=== PATIENT | female | born 1955 | race Caucasian/White ===

== ENCOUNTER 2018-05-07 12:45 | Outpatient (REF) | payer OTHER, SELFPAY ==
[2018-05-07 21:27] LABS: ALT 24 U/L (12-78); AST 16 U/L (15-37); Albumin 3.9 g/dL (3.4-5.0); Alkaline Phosphatase 95 U/L (46-116); Anion Gap 7.8 mmol/L (3-11); BUN 15 mg/dL (7-18); Bilirubin, Total 0.4 mg/dL (0.2-1.0); CO2 29.2 mmol/L (21.0-32.0); CREATININE 0.89 mg/dL (0.55-1.02); Calcium 9.8 mg/dL (8.5-10.1); Chloride 103 mmol/L (98-107); Cholesterol 323 mg/dL (50-200); Glucose 93 mg/dL (70-100); HDL Cholesterol 54 mg/dL (40-60); LDL CHOLESTEROL 238 mg/dL (<100); Potassium 4.5 mmol/L (3.5-5.1); Sodium 140 mmol/L (136-145); TSH 2.23 uIU/mL (0.358-3.74); Total Protein 7.8 g/dL (6.4-8.2); Triglyceride 148 mg/dL (30-150)
== END 2018-05-07 13:05 ==
LOC: NCHCN 12:45
PROVIDERS: PCP Physician Assistant Medical; Visit Provider Nurse Practitioner Family
DX: R76.0 Raised antibody titer (principal); E78.70 Disorder of bile acid and cholesterol metabolism, unspecified; M85.80 Other specified disorders of bone density and structure, unspecified site
CPT/HCPCS: 80053; 80061; 83721; 84443

== ENCOUNTER 2018-05-28 00:10 | Outpatient (CLI) | payer OTHER, SELFPAY ==
--- NOTE | 2018-05-28 15:03 | DI.MAMMO_ITS ---
SYMPTOM/DIAGNOSIS: SCREENING, Z12.39 MAMMOGRAMS: Mammograms were interpreted according to the usual protocol including computer analysis with CAD system, tomosynthesis and C view imaging. There are no prior comparison exams. The breasts are composed of scattered fibroglandular densities, breast density, Category B. No suspicious masses or suspicious microcalcifications are seen. IMPRESSION: Category 1, negative mammogram. Yearly screening mammography is recommended. [facility] [place] ASSESSMENT OF FINDINGS: Negative. Category 1. Patient will receive a letter notifying them of these results. BI-RADS category B. There are scattered areas of fibroglandular density.
== END 2018-05-28 00:30 ==
PROVIDERS: PCP Nurse Practitioner Family; Visit Provider Nurse Practitioner Family
DX: Z12.31 Encounter for screening mammogram for malignant neoplasm of breast (principal)
CPT/HCPCS: 77063; 77067

== ENCOUNTER 2024-06-07 10:11 | Outpatient (CLI) | payer MEDICARE, SELFPAY ==
[2024-06-07 15:58] LABS: Calculated LDL 198 mg/dL (<100); Cholesterol 266 mg/dL (<200); HDL Cholesterol 49 mg/dL (>or=50); Triglyceride 97 mg/dL (<150)
== END 2024-06-07 10:12 | disposition home or self-care (01) ==
LOC: LBO 10:13
PROVIDERS: Visit Provider Nurse Practitioner Family
DX: E78.5 Hyperlipidemia, unspecified (principal)
CPT/HCPCS: 36415; 80061